=== PATIENT | male | born 1960 | race Caucasian/White ===

== ENCOUNTER 2020-09-04 07:30 | Emergency (ER) | payer OTHER, SELFPAY ==
[2020-09-04] VITALS (13 sets, daily range): BP systolic 113–156; BP diastolic 73–85; PULSE 59–70; RESP 11–27; TEMP 37; O2SAT 95–98; BMI 32.3
--- NOTE | 2020-09-04 07:51 | DI.RAD.S_ITS ---
PROCEDURE: XR CHEST 1V INDICATIONS: chest pain TECHNIQUE: One view of the chest was acquired. COMPARISON: None. FINDINGS: Surgical changes and devices: None. Lungs and pleura: Lungs are clear. No pleural effusions or pneumothorax. Mediastinum: Mediastinal contours appear normal. Heart size is normal. Bones and chest wall: No suspicious bony lesions. Overlying soft tissues appear unremarkable. IMPRESSION: No acute disease. Dictated by: Roberto Garza M.D. on 09/04/2020 at 8:32 Approved by: Roberto Garza M.D. on 09/04/2020 at 8:33
--- NOTE | 2020-09-04 07:55 | ED_ITS ---
HPI - Chest Pain General Chief Complaint: Chest Pain Stated Complaint: overwhelming feeling of tingling whole body Time Seen by Provider: 09/04/20 07:36 Source: patient Mode of arrival: Ambulatory Limitations: no limitations History of Present Illness HPI narrative: 59-year-old male here for evaluation of symptoms that started this morning. Patient states that he was woken up from his sleep by the symptoms that brought him in. He states he went in to urinate and then when he when laid back down in bed he had an overall sensation of not feeling very well and feeling like he was ?just injected with ice water. The symptoms seem to have resolved by now. He has had things like this in the past. He states that 1.5 years ago he had very similar symptoms and had a ?cardiac workup? he has had elevated troponins in the past and was told that he did have a heart attack but then in subsequent evaluations by Cardiology was told that he did not. He mentions comments like ?vasospasm ?that he was told by the junior account executive. At the time my evaluation he has no symptoms. He does have a longstanding history of reflux disease. Is on a proton pump inhibitor for this. Currently he is having his normal midsternal chest reflux disease discomfort. He is scheduled for an endoscopy and a colonoscopy. He also has had a chronic cough. Review of Systems Constitutional Constitutional: Denies fever(s) Cardiovascular Cardiovascular: Reports chest pain, Denies lightheadedness and Denies dyspnea Respiratory Respiratory: Reports cough and Denies dyspnea Gastrointestinal Gastrointestinal: Denies abdominal pain, Denies change in bowel habits, Denies nausea and Denies vomiting Genitourinary Genitourinary: Denies dysuria Genitourinary: Denies dysuria Musculoskeletal Musculoskeletal: Denies arthralgias, Denies myalgias and Reports tingling Integumentary/Breasts Skin/Breast: Denies rash Neurologic Neurologic: Denies behavioral changes and Reports tingling Psychiatric Psychiatric: Denies behavioral changes Hematologic/Lymphatic Hematologic/Lymphatic: Denies easy bleeding and Denies easy bruising Allergic/Immunologic Allergic/Immunologic: Denies urticaria Patient History Medical History Gastroesophageal reflux disease Social History Smoking Status: Never smoker Smoking Status: Never smoker alcohol intake frequency: holidays/special occasions only Substance Use Type: does not use Exam Initial Vital Signs Initial Vital Signs: Vital Signs Temperature 98.6 F 09/04/20 07:48 Pulse Rate 70 09/04/20 07:48 Respiratory Rate 16 09/04/20 07:48 Blood Pressure 156/85 H 09/04/20 07:48 Pulse Oximetry 96 09/04/20 07:48 Const General: cooperative and comfortable Limitations: mental status not altered HENMT Head: normal to inspection and normocephalic Resp Effort & Inspection: normal respiratory effort Auscultation: clear to auscultation bilaterally Cardio Rate: regular rate Rhythm: regular rhythm GI Inspection: non-distended Palpation: soft and No tender Skin Lesions: no lesions Rashes: no rashes Neuro General: patient alert, patient awake and patient oriented x3 Cognition: normal cognition Speech: speech normal Extrem General: normal to inspection and capillary refill normal Psych Appearance: grossly normal and well kempt Scores HEART Score Heart Score history: Slightly Suspicious Heart Score EKG: Normal Heart Score Age: 45-64 years old Heart Score risk factors: No known risk factors Heart Score troponin: < or = to normal limit Heart Score Total: 1 Course Orders Ordered: ED Orders 09/04/20 07:45 COVID19 Stat Complete Blood Count AUTO DIFF Stat Comprehensive Metabolic Panel Stat Lipase Stat Partial Thromboplastin Time Stat Prothrombin Time INR Stat Troponin & CK Cardiac Panel Stat 09/04/20 07:51 XR chest 1V Stat EKG-12 Lead Stat 09/04/20 10:58 Troponin & CK Cardiac Panel Stat Vital Signs Vital signs: Vital Signs - 8 hr 09/04/20 07:48 09/04/20 08:18 09/04/20 08:30 Temperature 98.6 F Pulse Rate 70 63 60 Respiratory Rate 16 14 14 Blood Pressure 156/85 H 129/77 137/82 Pulse Oximetry 96 97 96 09/04/20 09:00 09/04/20 09:30 09/04/20 10:00 Temperature Pulse Rate 59 L 60 64 Respiratory Rate 11 L 21 Blood Pressure 141/84 H 141/78 H Pulse Oximetry 97 97 98 09/04/20 10:04 09/04/20 10:05 09/04/20 10:30 Temperature Pulse Rate 65 63 Respiratory Rate 17 16 18 Blood Pressure 128/76 123/73 121/82 Pulse Oximetry 98 97 96 12/08/20 11:00 09/04/20 11:30 Temperature Pulse Rate 59 L 59 L Respiratory Rate 14 14 Blood Pressure 127/78 113/77 Pulse Oximetry 97 95 MDM - Chest Pain Lab Data Attestation: I reviewed the patient's lab results. Result diagrams: 09/04/20 07:45 09/04/20 07:45 Labs: Lab Results 09/04/20 09/04/20 09/04/20 Range/Units 07:45 07:45 07:45 WBC 7.2 (4.5-11.0) X10^3/uL RBC 4.75 (4.5-5.9) X10^6/uL Hgb 15.0 (13.5-17.5) g/dL Hct 44.0 (41-53) % MCV 92.6 (80-100) fL MCH 31.6 (26-34) PG MCHC 34.1 (30-36) % RDW 13.0 (11.6-14.8) % Plt Count 253 (150-400) X10^3/uL Neut % (Auto) 54.2 (50-75) % Lymph % (Auto) 33.3 (25-40) % [place] % (Auto) 9.8 (3-14) % Eos % (Auto) 1.9 L (2-4) % Baso % (Auto) 0.8 (0-2) % Neut # (Auto) 3900 (9986-2781) /uL Lymph # (Auto) 2400 (7655-0267) /uL [place] # (Auto) 700 (0-900) /uL Eos # (Auto) 100 (0-450) /uL Baso # (Auto) 100 (0-100) /uL PT 11.1 (10.1-12.7) SECONDS INR 1.0 (0.9-1.3) APTT 34 (26.4-36.2) SECONDS Sodium 139 (137-145) mmol/L Potassium 4.0 (3.4-5.1) mmol/L Chloride 104 (98-107) mmol/L Carbon Dioxide 30 (22-32) mmol/L BUN 20 (9-20) mg/dL Creatinine 0.91 (0.66-1.25) mg/dL Estimated GFR > 60.0 (>60) mL/min BUN/Creatinine Ratio 22.0 (6-22) Glucose 97 (70-100) mg/dL Calcium 9.1 (8.4-10.2) mg/dL Total Bilirubin 0.8 (0.2-1.3) mg/dL AST 29 (17-59) IU/L ALT 24 (<50) IU/L Alkaline Phosphatase 75 (38-126) U/L Total Creatine Kinase 80 (55-170) U/L CK-MB (CK-2) TNP CK-MB (CK-2) Rel Index TNP Troponin I < 0.012 (0.01-0.034) ng/mL Total Protein 7.7 (6.3-8.2) g/dL Albumin 4.5 (3.5-5.0) g/dL Globulin 3.2 (1.7-4.1) g/dL Albumin/Globulin Ratio 1.4 (1.0-2.8) Lipase 59 (23-300) U/L COVID-19 PCR (Negative) 09/04/20 09/04/20 Range/Units 07:45 10:58 WBC (4.5-11.0) X10^3/uL RBC (4.5-5.9) X10^6/uL Hgb (13.5-17.5) g/dL Hct (41-53) % MCV (80-100) fL MCH (26-34) PG MCHC (30-36) % RDW (11.6-14.8) % Plt Count (150-400) X10^3/uL Neut % (Auto) (50-75) % Lymph % (Auto) (25-40) % [place] % (Auto) (3-14) % Eos % (Auto) (2-4) % Baso % (Auto) (0-2) % Neut # (Auto) (4276-1555) /uL Lymph # (Auto) (6164-9601) /uL [place] # (Auto) (0-900) /uL Eos # (Auto) (0-450) /uL Baso # (Auto) (0-100) /uL PT (10.1-12.7) SECONDS INR (0.9-1.3) APTT (26.4-36.2) SECONDS Sodium (137-145) mmol/L Potassium (3.4-5.1) mmol/L Chloride (98-107) mmol/L Carbon Dioxide (22-32) mmol/L BUN (9-20) mg/dL Creatinine (0.66-1.25) mg/dL Estimated GFR (>60) mL/min BUN/Creatinine Ratio (6-22) Glucose (70-100) mg/dL Calcium (8.4-10.2) mg/dL Total Bilirubin (0.2-1.3) mg/dL AST (17-59) IU/L ALT (<50) IU/L Alkaline Phosphatase (38-126) U/L Total Creatine Kinase 73 (55-170) U/L CK-MB (CK-2) TNP CK-MB (CK-2) Rel Index TNP Troponin I < 0.012 (0.01-0.034) ng/mL Total Protein (6.3-8.2) g/dL Albumin (3.5-5.0) g/dL Globulin (1.7-4.1) g/dL Albumin/Globulin Ratio (1.0-2.8) Lipase (23-300) U/L COVID-19 PCR Negative (Negative) Imaging Data Chest x-ray: Radiologist's Impression: [address] [address]CSng ReportSigned Patient: Maxi Mcgraw Jr R#: [id number]: 1960Acct:[id number]/Sex: 59 / MDate of Service: 09/04/20Loc: EDAccession Number: [id number] Procedure: XR chest 1V Ordering Provider: Jordan Jolley D.O. PROCEDURE: XR CHEST 1V INDICATIONS: chest pain TECHNIQUE: One view of the chest was acquired. COMPARISON: None. FINDINGS: Surgical changes and devices: None. Lungs and pleura: Lungs are clear. No pleural effusions or pneumothorax. Mediastinum: Mediastinal contours appear normal. Heart size is normal. Bones and chest wall: No suspicious bony lesions. Overlying soft tissues appear unremarkable. IMPRESSION: No acute disease. Dictated by: Roberto Garza M.D. on 09/04/2020 at 8:32 Approved by: Roberto Garza M.D. on 09/04/2020 at 8:33 ECG Data Attestation: I personally reviewed and interpreted this ECG as follows: Prior ECG tracings: not available for review Interpretation: Sinus rhythm First degree AV block P are interval 210 millisecond Ventricular rate is 65 Normal axis Normal QRS Normal QTC No ST T wave changes MDM Narrative Medical decision making narrative: Unremarkable EKG. Chest x-ray is unremarkable. No ectopy here in the ER. Low risk heart score. Has had an extensive workup for very similar symptoms to this in the past which showed no heart disease. Low suspicion for TIA or CVA. With patient follow-up with his primary doctor. He was given return precautions. He expressed understanding and agreement. Discharge Plan Departure Patient Disposition: Home Clinical Impression: Paresthesias Activity Restrictions/Additional Instructions: I do recommend that you start taking your blood pressure at home like we discussed. I recommend you talk with your primary doctor about your blood pressure and also discussed indications for a Holter monitor. Return to the emergency department for any new or worsening symptoms
[2020-09-04 07:58] LABS: Add Manual Diff / Slide Review NO; Basophils Absolute Auto 100 /uL (0-100); Basophils Percent Auto 0.8 % (0-2); Eosinophils Absolute Auto 100 /uL (0-450); Eosinophils Percent Auto 1.9 % (2-4); Lymphocytes Absolute Auto 2400 /uL (1100-4500); Lymphocytes Percent Auto 33.3 % (25-40); Mean Corpuscular HGB Conc 34.1 % (30-36); Mean Corpuscular Hemoglobin 31.6 PG (26-34); Mean Corpuscular Volume 92.6 fL (80-100); Monocytes Absolute Auto 700 /uL (0-900); Monocytes Percent Auto 9.8 % (3-14); Neutrophils Absolute Auto 3900 /uL (1500-7000); Neutrophils Percent Auto 54.2 % (50-75); Platelet Count 253 X10^3/uL (150-400); Red Blood Cell Count 4.75 X10^6/uL (4.5-5.9); White Blood Cell Count 7.2 X10^3/uL (4.5-11.0)
[2020-09-04 08:03] LABS: Prothrombin Time 11.1 SECONDS (10.1-12.7)
[2020-09-04 08:05] LABS: PTT Partial Thromboplastin Tim 34 SECONDS (26.4-36.2)
[2020-09-04 08:07] LABS: Alanine Aminotransferase 24 IU/L (<50); Albumin 4.5 g/dL (3.5-5.0); Albumin Globulin Ratio 1.4 (1.0-2.8); Alkaline Phosphatase 75 U/L (38-126); Aspartate Aminotransferase 29 IU/L (17-59); Bilirubin Total 0.8 mg/dL (0.2-1.3); Blood Urea Nitrogen 20 mg/dL (9-20); Calcium 9.1 mg/dL (8.4-10.2); Carbon Dioxide 30 mmol/L (22-32); Chloride 104 mmol/L (98-107); Creatine Kinase 80 U/L (55-170); Estimated Glomerular Filt Rate > 60.0 mL/min (>60); Globulin 3.2 g/dL (1.7-4.1); Glucose 97 mg/dL (70-100); HEMOLYSIS < 15 (0-50); Lipase 59 U/L (23-300); Sodium 139 mmol/L (137-145); Total Protein 7.7 g/dL (6.3-8.2)
[2020-09-04 08:13] LABS: COVID19 -Nasal RAPID Negative (Negative)
[2020-09-04 08:17] LABS: Troponin I < 0.012 ng/mL (0.01-0.034)
[2020-09-04 11:24] LABS: Creatine Kinase 73 U/L (55-170)
[2020-09-04 11:37] LABS: Troponin I < 0.012 ng/mL (0.01-0.034)
== END 2020-09-04 12:26 | disposition home or self-care (01) ==
PROVIDERS: Emergency Provider Emergency Medicine
DX: R20.2 Paresthesia of skin (principal); K21.9 Gastro-esophageal reflux disease without esophagitis; R05 Cough; R07.9 Chest pain, unspecified
CPT/HCPCS: 36415; 71045; 80053; 82550; 83690; 84484; 85025; 85610; 85730; 87635; 93005; 93010; 99283; 99284

== ENCOUNTER → 2021-02-07 13:23 | Outpatient (CLI) | payer OTHER, SELFPAY ==
[2021-02-07 14:29] LABS: COVID19 -Nasal RAPID Negative (Negative)
[2021-02-07 21:57] LABS: COVID-19 CEPHEID PCR (VTM/NP) Negative (Negative)
== END ==
PROVIDERS: Visit Provider Physician Assistant
DX: Z20.822 Contact with and (suspected) exposure to COVID-19 (principal)
CPT/HCPCS: 87635; U0003

== ENCOUNTER 2021-12-19 13:50 | Emergency (ER) | payer OTHER, SELFPAY ==
[2021-12-19] VITALS (7 sets, daily range): BP systolic 120–132; BP diastolic 74–81; PULSE 56–64; RESP 13–24; TEMP 36.7; O2SAT 96–99; BMI 30.8
--- NOTE | 2021-12-19 13:59 | DI.RAD.S_ITS ---
PROCEDURE: XR CHEST 1V INDICATIONS: chest pain TECHNIQUE: One view of the chest was acquired. COMPARISON: [facility], CR, XR CHEST 1V, 09/04/2020, 8:19. FINDINGS: Surgical changes and devices: None. Lungs and pleura: Lungs are clear. No pleural effusions or pneumothorax. Mediastinum: Mediastinal contours appear normal. Heart size is normal. Bones and chest wall: No suspicious bony lesions. Overlying soft tissues appear unremarkable. IMPRESSION: No acute cardiopulmonary abnormality. Dictated by: Gareth Coughlin M.D. on 12/19/2021 at 13:59 Approved by: Gareth Couhglin M.D. on 12/19/2021 at 14:00
--- NOTE | 2021-12-19 14:54 | ED_ITS ---
HPI - Chest Pain General Chief Complaint: Chest Pain Stated Complaint: Chest Tightness/Discomfort Time Seen by Provider: 12/19/21 14:48 Source: patient Mode of arrival: Ambulatory Limitations: no limitations Limitations: no limitations History of Present Illness HPI narrative: This is a 61-year-old male who comes in with complaint of substernal chest pressure that is been present for 5-6 days. Patient states he has not felt short of breath. He denies any nausea or vomiting. He had an episode of diaphoresis 3 days ago while working in the [employer] that subsided but states it was warm outside. He denies fevers or chills, cold cough or congestion. No swelling in his extremities. Patient states he has had for distinct episodes somewhat similar to this but have not lasted as long in the past. In of having positive troponins on 2 different occasions he had heart catheterization on 2 d ifferent occasions which were both negative. He states that he was told possibly there was some spasm of his heart and had nitrates stopped and was started on omeprazole by 1 industry segment specialist. He states that he saw another industry segment specialist had a cardiac MRI and was told he had some scarring of the heart w as given a pamphlet and sent home. Patient does not take any daily medications besides omeprazole. No other prior surgeries. He chews tobacco, occasional alcohol but nothing recently, no illicit. Primary care is [facility]. He saw cardiology in [place] initially and then later in [place]. He does not remember their names or the [place] industry segment specialist group or Dr. singletary. He denies any family history of cardiac, pulmonary embolic history. Related Data Allergies Allergy/AdvReac Type Severity Reaction Status Date / Time No Known Drug Allergies Allergy Verified 12/19/21 13:59 Review of Systems Review of Systems ROS Unobtainable: All systems reviewed & are unremarkable except as noted in HPI and below Patient History Medical History Gastroesophageal reflux disease Social History Smoking Status: Never smoker Smoking Status: Never smoker alcohol intake frequency: holidays/special occasions only Substance Use Type: does not use Exam Narrative Exam Narrative: GENERAL: Alert and oriented x three, male in mild distress. HEENT: Head normocephalic, atraumatic, EOMI, pupils reactive, face symmetric, moist mucous membranes NECK: Supple, full range of motion CARDIOVASCULAR: Regular rate and rhythm without murmurs, rubs or gallops. Non reproducible chest pain. No JVD. No swelling bilateral lower extremities. RESPIRATORY: Breath sounds equal bilaterally, no wheezes rales or rhonchi. ABDOMEN: Soft, nontender. Normoactive bowel sounds all 4 quadrants. No guarding or rebound, rigidity, no mass : No CVA tenderness EXTREMITIES: Normal range of motion, no clubbing or edema. Neurovascularly intact NEUROLOGICAL: Cranial nerves II through XII grossly intact. Moving all extremities SKIN: Warm, dry, no petechiae, no rashes or lesions. Initial Vital Signs Initial Vital Signs: Vital Signs Temperature 98.1 F 12/19/21 13:53 Pulse Rate 61 12/19/21 13:53 Respiratory Rate 16 12/19/21 13:53 Blood Pressure 127/77 12/19/21 13:53 Pulse Oximetry 99 12/19/21 13:53 Course Orders Ordered: ED Orders 12/19/21 13:59 XR chest 1V Stat EKG-12 Lead Stat 12/19/21 15:10 Complete Blood Count AUTO DIFF Stat Comprehensive Metabolic Panel Stat Lipase Stat Magnesium Stat Troponin & CK Cardiac Panel Stat 12/19/21 17:10 Troponin I Stat 12/19/21 17:14 EKG-12 Lead Stat Discontinued Medications Al Hydrox/Mg Hydrox/Simethicone 20 ml/ Lidocaine HCl 15 ml 0 ml PO NOW ONE Stop: 12/19/21 15:18 Last Admin: 12/19/21 15:32 Dose: 30 ml Documented by: JUANCHO Reevaluation(s) Reevaluation #1: Reviewed patient's findings today, troponin, EKG, chest x-ray labs do not show acute changes. Patient has had catheterization x2 which has been negative in the past he saw cardiology in [place] but does not recall their name and is seeing his primary care tomorrow. I asked him to talk with his primary care tomorrow as they have access to his records and who he saw in the past in [place]. Patient feels agreeable and comfortable with this plan. All questions answered. We did discuss that he may have been diagnosed with a Prinzmetal angina he describes vaso spasm by his industry segment specialist but states his medications were changed to a peppers also unclear if this is truly the case and I would not change or adjust his medications without clearly understanding his prior diagnosis. Vital Signs Vital signs: Vital Signs - 8 hr 12/19/21 13:53 12/19/21 14:26 12/19/21 14:30 Temperature 98.1 F Pulse Rate 61 64 59 L Respiratory Rate 16 13 14 Blood Pressure 127/77 130/74 126/75 Pulse Oximetry 99 99 96 12/19/21 15:00 12/19/21 15:30 12/19/21 15:49 Temperature Pulse Rate 56 L 64 61 Respiratory Rate 16 24 16 Blood Pressure 127/75 120/79 Pulse Oximetry 96 97 99 12/19/21 18:11 Temperature Pulse Rate 61 Respiratory Rate Blood Pressure 132/81 Pulse Oximetry 97 MDM - Chest Pain Lab Data Result diagrams: 12/19/21 15:10 12/19/21 15:10 Labs: Lab Results 12/19/21 12/19/21 12/19/21 Range/Units 15:10 15:10 17:10 WBC 7.3 (4.5-11.0) X10^3/uL RBC 4.54 (4.5-5.9) X10^6/uL Hgb 14.1 (13.5-17.5) g/dL Hct 41.3 (41-53) % MCV 90.9 (80-100) fL MCH 31.1 (26-34) PG MCHC 34.2 (30-36) % RDW 13.0 (11.6-14.8) % Plt Count 252 (150-400) X10^3/uL Neut % (Auto) 63.2 (50-75) % Lymph % (Auto) 28.1 (25-40) % [place] % (Auto) 7.3 (3-14) % Eos % (Auto) 0.9 L (2-4) % Baso % (Auto) 0.5 (0-2) % Neut # (Auto) 4600 (1940-4056) /uL Lymph # (Auto) 2100 (1019-5125) /uL [place] # (Auto) 500 (0-900) /uL Eos # (Auto) 100 (0-450) /uL Baso # (Auto) 0 (0-100) /uL Sodium 140 (137-145) mmol/L Potassium 4.0 (3.4-5.1) mmol/L Chloride 109 H (98-107) mmol/L Carbon Dioxide 25 (22-32) mmol/L BUN 15 (9-20) mg/dL Creatinine 0.88 (0.66-1.25) mg/dL Estimated GFR > 60.0 (>60) mL/min BUN/Creatinine Ratio 17.0 (6-22) Glucose 94 (70-100) mg/dL Calcium 9.0 (8.4-10.2) mg/dL Magnesium 2.0 (1.6-2.3) mg/dL Total Bilirubin 0.6 (0.2-1.3) mg/dL AST 25 (17-59) IU/L ALT 19 (<50) IU/L Alkaline Phosphatase 63 (38-126) U/L Total Creatine Kinase 85 (55-170) U/L CK-MB (CK-2) TNP CK-MB (CK-2) Rel Index TNP Troponin I < 0.012 < 0.012 (0.01-0.034) ng/mL Total Protein 7.2 (6.3-8.2) g/dL Albumin 4.2 (3.5-5.0) g/dL Globulin 3.0 (1.7-4.1) g/dL Albumin/Globulin Ratio 1.4 (1.0-2.8) Lipase 60 (23-300) U/L Imaging Data Chest x-ray: Radiologist's Impression: [address] [address] XRay Report Signed Patient: Maxi Mcgraw Jr MR#: [id number] : 1960 Acct:[id number] Age/Sex: 61 / M Date of Service: 12/19/21 Loc: ED Accession Number: [id number] ?? Procedure: XR chest 1V Ordering Provider: Vanessa Wyatt D.O. PROCEDURE:? XR CHEST 1V ? INDICATIONS:? chest pain ? TECHNIQUE:? One view of the chest was acquired.? ? COMPARISON:? [facility], CR, XR CHEST 1V, 09/04/2020, 8:19. ? FINDINGS:? ? Surgical changes and devices:? None.? ? Lungs and pleura:? Lungs are clear.? No pleural effusions or pneumothorax.? ? Mediastinum:? Mediastinal contours appear normal.? Heart size is normal.? ? Bones and chest wall:? No suspicious bony lesions.? Overlying soft tissues appear unremarkable.? ? IMPRESSION:? No acute cardiopulmonary abnormality. ? ? Dictated by: Gareth Coughlin M.D. on 12/19/2021 at 13:59 ? ? Approved by: Gareth Coughlin M.D. on 12/19/2021 at 14:00? ECG Data Attestation: I personally reviewed and interpreted this ECG as follows: Prior ECG tracings: not available for review Interpretation: Sinus rhythm. Rate of 66 CT 198 QRS 88 QTC of 410. No acute ST elevation or depression noted. No prior are available. EKG 2 shows sinus bradycardia with sinus arrhythmia with first-degree AV block. Rate of 50 9p are 214 QRS of 96 and QTC of 390. No acute ST elevation or depression noted. Patient's EKG appears similar to priors. MDM Narrative Medical decision making narrative: This is a 61-year-old male who comes with chest tightness and discomfort which has been persistent for the last 5-6 days. He has had similar symptoms in the past but not as persistently. He does have GERD but states this feels different. He had a GI cocktail with no change. Patient does not have acute EKG or troponin changes. Chest x-ray and labs are not showing acute changes as well. Patient has seen Cardiology twice, he states he had positive troponins in the past had 2 heart caths that were both negative with these positive troponins and ultimately told that he did not have any coronary artery disease. There was discussion about spasm which may have been a Prinzmetal's angina but he does not recall being given this diagnosis specifically. He states the industry segment specialist and telling him changed him from nitrates to omeprazole. He did follow with a industry segment specialist in [place] and had a cardiac MRI and was told there was some scarring may be from an old virus of the muscle or muscle wall but was given a pamphlet and no additional changes. Currently his only medications are omep razole. He is already set up follow-up with his primary care for tomorrow but they told him to come here for evaluation as they can do cardiac workup in the clinic. At this time I feel he is appropriate for discharge home but with closed follow-up tomorrow and to be set up with follow-up with his industry segment specialist in [place] whose records are with his physician. Discharge Plan Departure Patient Disposition: Home Clinical Impression: Chest pain Instructions: DI for Chest Pain Activity Restrictions/Additional Instructions: Follow-up with your physician for recheck at your appointment tomorrow, they can help refer you back to your industry segment specialist in [place] for further workup as needed. If you have persistent chest pain I would recommend follow-up with Cardiology. Please return for new or worsening chest pain, shortness of breath, lightheadedness or passing out, persistent vomiting, diaphoresis, new swelling in her extremities or other new or concerning symptoms. Referrals: Miscellaneous,DoctorMD [Primary Care Provider] -
[2021-12-19 15:20] LABS: Add Manual Diff / Slide Review NO; Basophils Absolute Auto 0 /uL (0-100); Basophils Percent Auto 0.5 % (0-2); Eosinophils Absolute Auto 100 /uL (0-450); Eosinophils Percent Auto 0.9 % (2-4); Hematocrit 41.3 % (41-53); Hemoglobin 14.1 g/dL (13.5-17.5); Lymphocytes Absolute Auto 2100 /uL (1100-4500); Lymphocytes Percent Auto 28.1 % (25-40); Mean Corpuscular HGB Conc 34.2 % (30-36); Mean Corpuscular Hemoglobin 31.1 PG (26-34); Mean Corpuscular Volume 90.9 fL (80-100); Monocytes Absolute Auto 500 /uL (0-900); Monocytes Percent Auto 7.3 % (3-14); Neutrophils Absolute Auto 4600 /uL (1500-7000); Neutrophils Percent Auto 63.2 % (50-75); Platelet Count 252 X10^3/uL (150-400); Red Blood Cell Count 4.54 X10^6/uL (4.5-5.9); White Blood Cell Count 7.3 X10^3/uL (4.5-11.0)
[2021-12-19] MEDS: MAG HYDROX/ALUMINUM/SIMETH SUS 20 ML, LIDOCAINE VISCOUS 2% 15 ML PO (15:32)
[2021-12-19 15:34] LABS: Alanine Aminotransferase 19 IU/L (<50); Albumin 4.2 g/dL (3.5-5.0); Albumin Globulin Ratio 1.4 (1.0-2.8); Alkaline Phosphatase 63 U/L (38-126); Aspartate Aminotransferase 25 IU/L (17-59); Bilirubin Total 0.6 mg/dL (0.2-1.3); Blood Urea Nitrogen 15 mg/dL (9-20); Carbon Dioxide 25 mmol/L (22-32); Chloride 109 mmol/L (98-107); Creatine Kinase 85 U/L (55-170); Estimated Glomerular Filt Rate > 60.0 mL/min (>60); Glucose 94 mg/dL (70-100); HEMOLYSIS < 15 (0-50); Lipase 60 U/L (23-300); Sodium 140 mmol/L (137-145); Total Protein 7.2 g/dL (6.3-8.2)
[2021-12-19 15:45] LABS: Troponin I < 0.012 ng/mL (0.01-0.034)
[2021-12-19 17:44] LABS: Troponin I < 0.012 ng/mL (0.01-0.034)
== END 2021-12-19 18:11 | disposition home or self-care (01) ==
PROVIDERS: Emergency Provider Emergency Medicine
DX: R07.9 Chest pain, unspecified (principal); R00.1 Bradycardia, unspecified; I44.0 Atrioventricular block, first degree
CPT/HCPCS: 36415; 71045; 80053; 82550; 83690; 83735; 84484; 85025; 93005; 99284

== ENCOUNTER 2024-11-08 09:43 | Emergency (ER) | payer OTHER, SELFPAY ==
[2024-11-08 09:50] VITALS: BP 143/70; PULSE 66; RESP 16; TEMP 36.4; O2SAT 99; BMI 31.5
--- NOTE | 2024-11-08 09:57 | EKG_ITS ---
[place] [address] [place] [id number] Test Date: 2024-11-08 Pat Name: Maxi Mcgraw Jr Department: 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
--- NOTE | 2024-11-08 10:17 | DI.RAD.S_ITS ---
PROCEDURE: XR CHEST 1V INDICATIONS: chest pain TECHNIQUE: One view of the chest was acquired. COMPARISON: [facility], CR, XR CHEST 1V, 12/19/2021, 14:28. FINDINGS: Surgical changes and devices: None. Lungs and pleura: Lungs are clear. No pleural effusions or pneumothorax. Mediastinum: Mediastinal contours appear normal. Heart size is normal. Bones and chest wall: No suspicious bony lesions. Overlying soft tissues appear unremarkable. IMPRESSION: No acute cardiopulmonary abnormality is seen. Dictated by: Bria Teague MD, PhD on 11/08/2024 at 10:52 Approved by: Bria Teague MD, PhD on 11/08/2024 at 10:52
[2024-11-08 10:48] LABS: Add Manual Diff / Slide Review NO; Basophils Absolute Auto 100 /uL (0-100); Basophils Percent Auto 0.8 % (0-2); Eosinophils Absolute Auto 100 /uL (0-450); Eosinophils Percent Auto 1.8 % (2-4); Hematocrit 41.5 % (41-53); Hemoglobin 14.3 g/dL (13.5-17.5); Lymphocytes Absolute Auto 1700 /uL (1100-4500); Lymphocytes Percent Auto 25.7 % (25-40); Mean Corpuscular HGB Conc 34.4 % (30-36); Mean Corpuscular Hemoglobin 31.4 PG (26-34); Mean Corpuscular Volume 91.5 fL (80-100); Monocytes Absolute Auto 500 /uL (0-900); Monocytes Percent Auto 8.1 % (3-14); Neutrophils Absolute Auto 4200 /uL (1500-7000); Neutrophils Percent Auto 63.6 % (50-75); Platelet Count 262 X10^3/uL (150-400); Red Blood Cell Count 4.54 X10^6/uL (4.5-5.9); Red Cell Distribution Width 13.1 % (11.6-14.8); White Blood Cell Count 6.6 X10^3/uL (4.5-11.0)
[2024-11-08 10:58] LABS: Prothrombin Time 11.3 SECONDS (9.4-12.5)
[2024-11-08 11:01] LABS: PTT Partial Thromboplastin Tim 36 SECONDS (25.1-36.5)
[2024-11-08 11:06] LABS: Alanine Aminotransferase 22 IU/L (<50); Albumin 4.4 g/dL (3.5-5.0); Albumin Globulin Ratio 1.5 (1.0-2.8); Alkaline Phosphatase 77 U/L (38-126); Aspartate Aminotransferase 32 IU/L (17-59); BUN Creatinine Ratio 16.7 (6-22); Bilirubin Total 0.6 mg/dL (0.2-1.3); Blood Urea Nitrogen 15 mg/dL (9-20); Carbon Dioxide 26 mmol/L (22-32); Chloride 106 mmol/L (98-107); Creatine Kinase 89 U/L (55-170); Estimated Glomerular Filt Rate > 60 mL/min (>60); Globulin 2.9 g/dL (1.7-4.1); Glucose 99 mg/dL (80-110); HEMOLYSIS < 15 (0-50); Lipase 71 U/L (23-300); Magnesium 1.8 mg/dL (1.6-2.3); Potassium 4.1 mmol/L (3.4-5.1); Sodium 138 mmol/L (137-145); Total Protein 7.3 g/dL (6.3-8.2)
[2024-11-08] MEDS: ASPIRIN 81 MG CHEW TAB 324 MG PO (11:06)
[2024-11-08 11:18] LABS: NT-proBNP (BNP-Adult 18+) 119 pg/mL (<125); Troponin I < 0.012 ng/mL (0.01-0.034)
[2024-11-08 11:34] VITALS: BP 116/71
--- NOTE | 2024-11-08 12:45 | EKG_ITS ---
[place] [address] [address] [address] Test Date: 2024-11-08 Pat Name: Maxi Mcgraw Jr Department: [facility] Room: Gender: Male House Carpenter: : 1960 Requested By: Order Number: [id number] Reading MD: Dave Sandoval MD Measurements Intervals [place] Rate: 61 P: 23 [place]: 216 QRS: 0 QRSD: 86 T: 19 QT: 400 QTc: 402 Interpretive Statements Sinus rhythm with 1st degree AV block Electronically Signed On 11-08-2024 13:25:02 PST by Dave Sandoval MD
[2024-11-08 13:37] LABS: Troponin I < 0.012 ng/mL (0.01-0.034)
[2024-11-08 15:43] VITALS: BP 152/90; PULSE 62; RESP 18; O2SAT 99
--- NOTE | 2024-11-08 17:16 | ED.CHESTPAIN ---
HPI - Chest Pain <Janak Francisco PA-C - Last Filed: 11/08/24 19:38> General Chief Complaint: Chest Pain Stated Complaint: Chest pain Time Seen by Provider: 11/08/24 15:33 Source: patient Mode of arrival: Family Vehicle Limitations: no limitations History of Present Illness HPI narrative: 63-year-old male with past medical history GERD presents to the ED with intermittent substernal chest pain today. He took 1 baby aspirin. Patient states that he has been having intermittent substernal chest pain for the last several years. Patient states he has made multiple trips to emergency rooms for the chest pain, they were unable to pinpoint an etiology. Patient has seen a learning technologist, unclear what workup was done. Patient states he did not have a treadmill stress test, but had a MRI of his heart. Last time he saw his learning technologist was 2 years ago. Patient also has a history of GERD for which he has been prescribed omeprazole. Patient states no alleviating or aggravating factors. Patient did say that today's chest pain occurred after playing pickleball. No fever, chills, cough, shortness of breath, nausea, vomiting, abdominal pain, lightheadedness, dizziness, syncope. Related Data Allergies Allergy/AdvReac Type Severity Reaction Status Date / Time No Known Drug Allergies Allergy Verified 11/08/24 10:24 Review of Systems <Janak Francisco PA-C - Last Filed: 11/08/24 19:38> Constitutional Constitutional: Denies chills, Denies fatigue, Denies fever(s), Denies frequent falls, Denies lethargy and Denies weakness Eyes Eyes: Denies change in vision, Denies eye discharge, Denies irritation and Denies loss of vision ENT Ears, Nose, Mouth, and Throat: Denies change in voice, Denies dizziness, Denies neck pain, Denies sore throat and Denies throat swelling Cardiovascular Cardiovascular: Reports chest pain, Denies irregular heart rhythm, Denies lightheadedness, Denies palpitations, Denies dyspnea, Denies dyspnea on exertion and Denies orthopnea Respiratory Respiratory: Denies cough, Denies dyspnea, Denies dyspnea on exertion and Denies wheezing Gastrointestinal Gastrointestinal: Denies abdominal pain, Denies change in bowel habits, Denies diarrhea, Denies nausea and Denies vomiting Musculoskeletal Musculoskeletal: Denies neck pain and Denies numbness Integumentary/Breasts Skin/Breast: Denies pruritus, Denies erythema, Denies rash and Denies wounds Neurologic Neurologic: Denies behavioral changes, Denies confusion, Denies dizziness, Denies frequent falls, Denies loss of vision, Denies numbness and Denies weakness Psychiatric Psychiatric: Denies anxiety, Denies behavioral changes, Denies confusion, Denies depression, Denies homicidal ideation and Denies suicidal ideation Endocrine Endocrine: Denies fatigue, Denies flushing and Denies palpitations Hematologic/Lymphatic Hematologic/Lymphatic: Denies easy bruising Allergic/Immunologic Allergic/Immunologic: Denies urticaria, Denies throat swelling and Denies wheezing Patient History <Janak Francisco PA-C - Last Filed: 11/08/24 19:38> Medical History Gastroesophageal reflux disease Social History Smoking Status: Never smoker Smoking Status: Never smoker alcohol intake frequency: holidays/special occasions only Exam <Janak Francisco PA-C - Last Filed: 11/08/24 19:38> Narrative Exam Narrative: Const General:?cooperative, healthy appearing and comfortable [facility] Head:?normal to inspection Ears:?hearing grossly normal bilaterally Nose:?external nose normal Face and sinus:?normal facial exam and sinuses nontender Mouth:?oral mucosae normal Throat:?posterior oropharynx normal Eyes General:?appearance normal, both eyes and all related structures Neck Neck:?normal visual inspection and no lymphadenopathy noted Resp Effort & Inspection:?normal respiratory effort Auscultation:?clear to auscultation bilaterally Cardio Rate:?regular rate Rhythm:?regular rhythm Neuro General:?patient alert, patient awake and patient oriented x3 Initial Vital Signs Initial Vital Signs: Vital Signs Temperature 97.6 F 11/08/24 09:50 Pulse Rate 66 11/08/24 09:50 Respiratory Rate 16 11/08/24 09:50 Blood Pressure 143/70 H 11/08/24 09:50 Pulse Oximetry 99 11/08/24 09:50 Oxygen Delivery Method Room Air 11/08/24 09:50 <Serafin Duran MD - Last Filed: 11/08/24 22:11> Initial Vital Signs Initial Vital Signs: Vital Signs Temperature 97.6 F 11/08/24 09:50 Pulse Rate 66 11/08/24 09:50 Respiratory Rate 16 11/08/24 09:50 Blood Pressure 143/70 H 11/08/24 09:50 Pulse Oximetry 99 11/08/24 09:50 Oxygen Delivery Method Room Air 11/08/24 09:50 Course <Janak Francisco PA-C - Last Filed: 11/08/24 19:38> Orders Ordered: Discontinued Medications Aspirin (Aspirin 81 Mg Chew Tab) 324 mg PO NOW ONE Stop: 11/08/24 10:18 Last Admin: 11/08/24 11:06 Dose: 243 mg Documented By: VAMSI Vital Signs Vital signs: Vital Signs - 8 hr 11/08/24 15:43 11/08/24 18:18 Pulse Rate 62 61 Respiratory Rate 18 18 Blood Pressure 152/90 H 121/66 Pulse Oximetry 99 95 Oxygen Delivery Method Room Air Room Air <Serafin Duran MD - Last Filed: 11/08/24 22:11> Orders Ordered: Discontinued Medications Aspirin (Aspirin 81 Mg Chew Tab) 324 mg PO NOW ONE Stop: 11/08/24 10:18 Last Admin: 11/08/24 11:06 Dose: 243 mg Documented By: VAMSI Vital Signs Vital signs: Vital Signs - 8 hr 11/08/24 15:43 11/08/24 18:18 Pulse Rate 62 61 Respiratory Rate 18 18 Blood Pressure 152/90 H 121/66 Pulse Oximetry 99 95 Oxygen Delivery Method Room Air Room Air MDM - Chest Pain <Janak Francisco PA-C - Last Filed: 11/08/24 19:38> Lab Data 11/08/24 10:39 11/08/24 10:39 Labs: Lab Results 11/08/24 11/08/24 Range/Units 10:39 13:05 WBC 6.6 (4.5-11.0) X10^3/uL RBC 4.54 (4.5-5.9) X10^6/uL Hgb 14.3 (13.5-17.5) g/dL Hct 41.5 (41-53) % MCV 91.5 (80-100) fL MCH 31.4 (26-34) PG MCHC 34.4 (30-36) % RDW 13.1 (11.6-14.8) % Plt Count 262 (150-400) X10^3/uL Neut % (Auto) 63.6 (50-75) % Lymph % (Auto) 25.7 (25-40) % [place] % (Auto) 8.1 (3-14) % Eos % (Auto) 1.8 L (2-4) % Baso % (Auto) 0.8 (0-2) % Neut # (Auto) 4200 (8607-2026) /uL Lymph # (Auto) 1700 (6773-2379) /uL [place] # (Auto) 500 (0-900) /uL Eos # (Auto) 100 (0-450) /uL Baso # (Auto) 100 (0-100) /uL PT 11.3 (9.4-12.5) SECONDS INR 1.0 (0.9-1.3) APTT 36 (25.1-36.5) SECONDS Sodium 138 (137-145) mmol/L Potassium 4.1 (3.4-5.1) mmol/L Chloride 106 (98-107) mmol/L Carbon Dioxide 26 (22-32) mmol/L BUN 15 (9-20) mg/dL Creatinine 0.90 (0.66-1.25) mg/dL Estimated GFR > 60 (>60) mL/min BUN/Creatinine Ratio 16.7 (6-22) Glucose 99 (80-110) mg/dL Calcium 9.0 (8.4-10.2) mg/dL Magnesium 1.8 (1.6-2.3) mg/dL Total Bilirubin 0.6 (0.2-1.3) mg/dL AST 32 (17-59) IU/L ALT 22 (<50) IU/L Alkaline Phosphatase 77 (38-126) U/L Total Creatine Kinase 89 (55-170) U/L Troponin I < 0.012 < 0.012 (0.01-0.034) ng/mL NT-Pro-B Natriuret Pep 119 (<125) pg/mL Total Protein 7.3 (6.3-8.2) g/dL Albumin 4.4 (3.5-5.0) g/dL Globulin 2.9 (1.7-4.1) g/dL Albumin/Globulin Ratio 1.5 (1.0-2.8) Lipase 71 (23-300) U/L MDM Narrative Medical decision making narrative: 63-year-old male with past medical history GERD presents to the ED with intermittent substernal chest pain today. ACS workup was initiated, which was unremarkable. Troponin x2 within normal limits. EKG x2 shows normal sinus rhythm with first-degree AV block, no acute ST-T changes. Labs within normal limits. BNP within normal limits. Chest x-ray without acute findings. Patient is not actively experiencing chest pain in the ED. discussed findings with patient. Recommend follow-up with cardiology for further evaluation. Also recommend follow-up with Gastroenterology for further evaluation. Patient has an appointment with his primary care doctor tomorrow, agrees to get referrals. ED return precautions were discussed with patient. Patient verbalized understanding. Medical records reviewed: Yes <Serafin Duran MD - Last Filed: 11/08/24 22:11> Lab Data Labs: Lab Results 11/08/24 11/08/24 Range/Units 10:39 13:05 WBC 6.6 (4.5-11.0) X10^3/uL RBC 4.54 (4.5-5.9) X10^6/uL Hgb 14.3 (13.5-17.5) g/dL Hct 41.5 (41-53) % MCV 91.5 (80-100) fL MCH 31.4 (26-34) PG MCHC 34.4 (30-36) % RDW 13.1 (11.6-14.8) % Plt Count 262 (150-400) X10^3/uL Neut % (Auto) 63.6 (50-75) % Lymph % (Auto) 25.7 (25-40) % [place] % (Auto) 8.1 (3-14) % Eos % (Auto) 1.8 L (2-4) % Baso % (Auto) 0.8 (0-2) % Neut # (Auto) 4200 (2890-0655) /uL Lymph # (Auto) 1700 (0991-7490) /uL [place] # (Auto) 500 (0-900) /uL Eos # (Auto) 100 (0-450) /uL Baso # (Auto) 100 (0-100) /uL PT 11.3 (9.4-12.5) SECONDS INR 1.0 (0.9-1.3) APTT 36 (25.1-36.5) SECONDS Sodium 138 (137-145) mmol/L Potassium 4.1 (3.4-5.1) mmol/L Chloride 106 (98-107) mmol/L Carbon Dioxide 26 (22-32) mmol/L BUN 15 (9-20) mg/dL Creatinine 0.90 (0.66-1.25) mg/dL Estimated GFR > 60 (>60) mL/min BUN/Creatinine Ratio 16.7 (6-22) Glucose 99 (80-110) mg/dL Calcium 9.0 (8.4-10.2) mg/dL Magnesium 1.8 (1.6-2.3) mg/dL Total Bilirubin 0.6 (0.2-1.3) mg/dL AST 32 (17-59) IU/L ALT 22 (<50) IU/L Alkaline Phosphatase 77 (38-126) U/L Total Creatine Kinase 89 (55-170) U/L Troponin I < 0.012 < 0.012 (0.01-0.034) ng/mL NT-Pro-B Natriuret Pep 119 (<125) pg/mL Total Protein 7.3 (6.3-8.2) g/dL Albumin 4.4 (3.5-5.0) g/dL Globulin 2.9 (1.7-4.1) g/dL Albumin/Globulin Ratio 1.5 (1.0-2.8) Lipase 71 (23-300) U/L Discharge Plan Departure Patient Disposition: Home Clinical Impression: Chest pain Qualifiers: Chest pain type: unspecified Qualified Code(s): R07.9 - Chest pain, unspecified Instructions: DI for Chest Pain Activity Restrictions/Additional Instructions: You were evaluated in the ED today for chest pain. Your chest x-ray, EKGs, labs and troponin were normal. It is unclear why you were experiencing the chest pain, and we recommend you seek consultation with Cardiology and Gastroenterology for further evaluation. It is reassuring you have a primary care doctor appointment for tomorrow, who can facilitate these referrals. In the meanwhile, please return to the ED if you have worsening symptoms such as chest pain and shortness of breath. Stand Alone Forms: Patient Portal/API/Survey ED Sign-out <Serafin Duran MD - Last Filed: 11/08/24 22:11> Cosign ED Attending Cosignature Attestation: I was immediately available in the department for consultation. This documentation has been reviewed and I agree with assessment and plan. Supervised by Serafin Duran MD
[2024-11-08 18:18] VITALS: BP 121/66; PULSE 61; RESP 18; O2SAT 95
== END 2024-11-08 18:18 | disposition home or self-care (01) ==
PROVIDERS: Emergency Medicine; Emergency Provider Student in an Organized Health Care Education/Training Program
DX: R07.9 Chest pain, unspecified (principal); I44.0 Atrioventricular block, first degree; K21.9 Gastro-esophageal reflux disease without esophagitis
CPT/HCPCS: 36415; 71045; 80053; 82550; 83690; 83735; 83880; 84484; 85025; 85610; 85730; 93005; 93010; 99284; 99285

== ENCOUNTER → 2025-01-04 10:23 | Outpatient (CLI) | payer OTHER, SELFPAY ==
--- NOTE | 2025-01-04 10:25 | DI.ECHO.S_ITS ---
[facility] +---------+ [facility] : : [address] : : [place] : : [id number] : : Phone: [phone] Echocardiogram Report + + :Name: BERTIN YEE JR Study Date: 01/04/2025 Height: 70 in : :[facility] ReadingLocation: Weight: 220 lb : : Gender: Male BSA: 2.2 m2 : :: 1960 Age: 64 yrs BP: 131/93 mmHg: :Reason For Study: CHEST PAIN : :Ordering Physician: AMARILIS, : :GERONIMO Performed By: Tamara Reardon : :Referring: GERONIMO ECHEVERRIA : + + Interpretation Summary The left ventricle is normal in size and wall thickness. The ejection fraction is estimated to be 55-60%. There are no focal wall motion abnormalities. Diastolic parameters suggest a relaxation abnormality of the left ventricle, consistent with probable normal filling pressures. The right ventricle is normal in size and function. Pulmonary artery pressures cannot be estimated because of the lack of a measurable TR jet velocity. The left atrial size is normal. There is no significant valvular heart disease. The aortic root is mildly dilated. The ascending aorta is mildly enlarged. The aortic arch is mildly enlarged. Procedure: A two-dimensional transthoracic echocardiogram with color flow and Doppler was performed. The study quality was technically adequate. There is no prior echocardiogram noted for this patient. The patient was in sinus rhythm with heart rates between 59-65 bpm during the exam. Left Ventricle: The left ventricle is normal in size and wall thickness. The ejection fraction is estimated to be 55-60%. There are no focal wall motion abnormalities. Diastolic parameters suggest a relaxation abnormality of the left ventricle, consistent with probable normal filling pressures. Right Ventricle: The right ventricle is normal in size and function. Atria: The left atrial size is normal. Right atrial size is normal. There is no Doppler evidence for an interatrial shunt. Mitral Valve: The mitral valve leaflets appear to open well. The mitral valve leaflets appear mildly thickened, but open well. There is trace mitral regurgitation. Aortic Valve: The aortic valve is trileaflet. The aortic valve opens well. There is no aortic valve stenosis. No aortic regurgitation is present. Tricuspid Valve: The tricuspid valve leaflets are thin and pliable. Pulmonary artery pressures cannot be estimated because of the lack of a measurable TR jet velocity. There is a trace or physiologic amount of tricuspid regurgitation. Pulmonic Valve: The pulmonic valve leaflets are thin and pliable; valve motion is normal. There is mild pulmonic regurgitation. There is no significant valvular heart disease. Great Vessels: The aortic root is mildly dilated. The ascending aorta is mildly enlarged. The aortic arch is mildly enlarged. The IVC is of normal diameter and collapses greater than 50% with a sniff. This suggests a low right atrial pressure of 3 mm Hg. Pericardium/ Pleura There is no pericardial effusion. There is no pleural effusion. MMode/2D Measurements & Calculations LVIDd: 5.3 cm LVOT diam: 2.3 cm LVIDs: 3.7 cm Ao root diam: 4.7 cm FS: 29.5 % asc Aorta Diam: 4.0 cm IVSd: 0.93 cm Ao Arch Diam (Prox Trans): 3.8 cm LVPWd: 0.72 cm LV melton. diameter/BSA (cm/m^2): 2.4 LV sys. diameter/BSA (cm/m^2): 1.7 LA A2 area: 22.7 cm2 RA long axis: 6.1 cm LA A4 area: 19.7 cm2 RA area: 19.5 cm2 LA length (vol): 5.5 cm RA vol: 52.5 ml LA vol: 69.4 ml RA : 24.2 ml/m2 LA vol index: 31.9 ml/m2 IVC diam: 1.5 cm RVD1 (basal): 3.8 cm RVD2 (mid): 3.4 cm TAPSE: 2.1 cm Doppler Measurements & Calculations Ao V2 max: 121.5 cm/sec LVOT Max Kurt: 95.9 cm/sec Ao V2 mean: 81.6 cm/sec LV V1 max P.7 mmHg Ao max P.9 mmHg LV V1 VTI: 18.9 cm Ao mean P.0 mmHg LUCIA(I,D): 2.9 cm2 Ao V2 VTI: 26.1 cm LUCIA(V,D): 3.2 cm2 sev ratio: 0.73 LUCIA indexed to BSA (cm^2/m^2): 1.4 MV E max kurt: 47.6 cm/sec PA V2 max: 103.4 cm/sec MV A max kurt: 52.0 cm/sec PA V2 mean: 71.3 cm/sec MV E/A: 0.92 PA mean P.3 mmHg Med Peak E' Kurt: 7.3 cm/sec E/E' med: 6.5 Lat Peak E' Kurt: 12.6 cm/sec E/E' lat: 3.8 E/e' average: 5.1 MV dec time: 0.27 sec SV(LVOT): 76.6 ml Reading Physician:11:35 PM
== END ==
PROVIDERS: Referring Provider Internal Medicine Cardiovascular Disease; Visit Provider Internal Medicine Cardiovascular Disease
DX: I37.1 Nonrheumatic pulmonary valve insufficiency (principal); I77.89 Other specified disorders of arteries and arterioles; I77.810 Thoracic aortic ectasia; R07.9 Chest pain, unspecified
CPT/HCPCS: 93306